=== PATIENT | male | born 1965 | race Caucasian/White ===

== ENCOUNTER → 2017-09-21 12:24 | Outpatient (CLI) | payer MEDICARE, MEDICAID | END | disposition home or self-care (01) | LOC: D.MRI 12:24 | DX: M25.561 Pain in right knee (principal) ==

== ENCOUNTER 2019-09-28 08:28 | Inpatient (IN) | payer MEDICARE, MEDICAID ==
[~2019-09-28] VITALS: Ht 180.3 cm; Wt 65.0 kg
--- NOTE | 2019-09-28 09:02 | NUR ---
TO CT VIA STRETCHER WITH COMPOSITION BOARD PRESS OPERATOR
[2019-09-28 09:30] LABS: BASOPHILS 0.2 % (0-2); EOSINOPHILS 6.5 % (0-7); HEMATOCRIT 39.9 % (42.0-54.0); HEMOGLOBIN 13.5 g/dL (13.5-17.5); IMMATURE GRANULOCYTES 0.3 % (0-5); LYMPHOCYTES 11.2 % (15-50); MCH 31.5 pg (26.0-34.0); MCHC 33.8 g/dL (31.0-37.0); MCV 93.2 fL (80.0-100.0); MEAN PLATELET VOLUME 9.3 fL (7.4-10.4); MONOCYTES 9.2 % (2-11); NEUTROPHILS 72.6 % (40-80); PLATELET COUNT 167 10x3/uL (130-400); RBC 4.28 10x6/uL (4.20-6.10); RDW 13.4 % (11.5-14.5); WBC 10.9 10x3/uL (4.8-10.8)
[2019-09-28 09:40] LABS: CALC OSMOLALITY 275 mosm/kg (275-300); CARBON DIOXIDE 29.1 mmol/L (21.0-32.0); CHLORIDE - SERUM 104 mmol/L (98-107); CREATININE - SERUM 0.7 mg/dL (0.6-1.3); GLUCOSE 106 mg/dL (74-106); POTASSIUM - SERUM 3.9 mmol/L (3.5-5.1); SODIUM 139 mmol/L (136-145); UREA NITROGEN 8 mg/dL (7-18); eGFR NON AFRICAN AMERICAN > 90 mL/min (90-120)
[2019-09-28 09:41] VITALS: BP 127/79
[2019-09-28 09:45] LABS: ALBUMIN 3.7 g/dL (3.4-5.0); ALKALINE PHOSPHATASE 52 U/L (46-116); ALT (SGPT) 51 U/L (10-68); BILIRUBIN - TOTAL 0.76 mg/dL (0.2-1.3); PROTEIN - SERUM 6.9 g/dL (6.4-8.2)
--- NOTE | 2019-09-28 09:48 | NUR ---
TO CT VIA STRETCHER WITH FOUNDRY PATTERNMAKER
[2019-09-28 10:07] LABS: CKMB 0.9 U/L (0.0-3.6); CREATINE KINASE 140 UL (21-232); TROPONIN-I < 0.017 ng/mL (0.000-0.060)
--- NOTE | 2019-09-28 10:12 | NUR ---
URINE SPEC OBTAIED,LABELED AT BS AND SENT TO LAB
[2019-09-28 10:29] LABS: APPEARANCE CLEAR (CLEAR); BILIRUBIN NEGATIVE (NEGATIVE); COLOR YELLOW (YELLOW); GLUCOSE NEGATIVE (NEGATIVE); KETONE NEGATIVE (NEGATIVE); NITRITE NEGATIVE (NEGATIVE); PROTEIN NEGATIVE (NEGATIVE); SPECIFIC GRAVITY 1.015 (1.005-1.020)
[2019-09-28 11:19] VITALS: BP 132/73
--- NOTE | 2019-09-28 11:56 | MORECARE ---
CASE MANAGEMENT DISCHARGE SUMMARY PATIENT: FERCHO PHAN UNIT: [id number] ADM DATE: 09/28/19 AGE: 54 : 67 SEX: M ROOM/BED: D.2231 AUTHOR: MITLON MONIQUE PHYSICIAN: REFERRING PHYSICIAN: KIRIT PLUMMER MD DATE OF SERVICE: 09/28/19 Discharge Plan Patient Name: FERCHO PHAN Facility: [facility]:[place] : 1965 Planned Disposition: Anticipated Discharge Date: Discharge Date: Expected LOS: Initial Reviewer: [id number] Initial Review Date: 09/28/2019 Generated: 09/28/19 12:56 pm DCP- Discharge Planning Updated by [id number]: Fabby Handy on 09/28/19 10:[address] CM met with patient to discuss initial discharge planning. Patient is in agreement to proceed with assessment. Patient is alert/oriented. Stairs/steps: None. Patient lives in an apartment with an elevator. PCP: Dr. Mirna Lynn APRN. Pharmacy: None. HHS: [place] [facility] in past, none current. DME: [facility]. Patient gives permission to speak with family members: Yes. Emergency contact: Trinh Marc (mother) [phone]. Independent w/ADL's: Yes. CM discussed the availability of HH, Rehab, DME services. Patient is in agreement to IN-patient REHAB if he qualifies. Patient denies being hospitalized within the past 30 days. 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 Transportation at time of discharge: Chrystal Marc (step-father) [phone]. CM will follow and assist with further DC planning PRN. Patient Name: FERCHO PHAN Page [phone] at 1156 All edits/amendments must be made on the electronic document DICTATION DATE: 09/28/19 1156 MARKETING BUDGET ANALYST: SHIRA 09/28/19 1156 RPT#: [id number] DC DATE: STATUS: ADM IN [facility] [address] [place] [address] END OF REPORT
--- NOTE | 2019-09-28 12:12 | NUR ---
REPORT CALLED TO WILMA FUENTES
[2019-09-28 12:35] VITALS: BP 130/76
--- NOTE | 2019-09-28 12:35 | NUR ---
TRANSPORTED TO ROOM #2231, CONDITION STABLE. NS INFUSING UPON TX
--- NOTE | 2019-09-28 12:50 | NUR ---
PT RECD TO RM 2231. PT IS AAO X 4. PT REPORTS THAT HE HAS HAD MULTIPLE FALLS RECENTLY AND ATTRITUBES FALLING TO DEFECT AND LEFT SIDED WEAKNESS A RESULT OF DEFECT. PT REPORTS THAT HE DOES DRINK ALCOHOL ON A REGULAR BASIS AND LAST INTAKE WAS (1) BEER ON 09/27/19. ALL FALL PRECAUTIONS ARE IN PLACE. PT REQUESTS TO STAY IN CURRENT HOSPITAL GOWN AT THIS TIME AND WILL CHANGE TO YELLOW GOWN AT HIS CONVENIENCE. PT WITH REDDENED AREA TO LEFT BUTTOCK WITH SORE. PT STATES THAT IT IS FROM "JUST BEING IN ONE SPOT FOR SO LONG". PT STATES THAT HE DOES LIVE ALONE BUT HIS MOTHER AND STEP FATHER WILL BE ASSISTING UPON DISCHARGE. PT WITH PERSONAL WALKER IN ROOM. BED IS IN THE LOWEST POSITION. CALL LIGHT AND BEDSIDE TABLE ARE WITHIN REACH. SIDE RAILS X 2. PT DENIES FURTHER NEEDS. WILL CONT TO MONITOR.
[2019-09-28 13:14] VITALS: BP 137/75
[2019-09-28 19:30] VITALS: BP 125/67
[2019-09-29 00:30] VITALS: BP 130/64
[2019-09-29 04:57] VITALS: BP 129/70
[2019-09-29 06:32] LABS: BASOPHILS 0.2 % (0-2); EOSINOPHILS 9.3 % (0-7); HEMATOCRIT 37.4 % (42.0-54.0); HEMOGLOBIN 12.1 g/dL (13.5-17.5); IMMATURE GRANULOCYTES 0.1 % (0-5); LYMPHOCYTES 17.5 % (15-50); MCH 31.2 pg (26.0-34.0); MCHC 32.4 g/dL (31.0-37.0); MEAN PLATELET VOLUME 9.4 fL (7.4-10.4); MONOCYTES 9.2 % (2-11); NEUTROPHILS 63.7 % (40-80); PLATELET COUNT 166 10x3/uL (130-400); RBC 3.88 10x6/uL (4.20-6.10); RDW 13.6 % (11.5-14.5); WBC 8.5 10x3/uL (4.8-10.8)
[2019-09-29 06:33] LABS: MCV 96.4 fL (80.0-100.0)
[2019-09-29 07:00] LABS: ALBUMIN 3.2 g/dL (3.4-5.0); ALKALINE PHOSPHATASE 49 U/L (46-116); BILIRUBIN - TOTAL 0.85 mg/dL (0.2-1.3); CALC OSMOLALITY 280 mosm/kg (275-300); CALCIUM 8.3 mg/dL (8.5-10.1); CARBON DIOXIDE 28.8 mmol/L (21.0-32.0); CHLORIDE - SERUM 108 mmol/L (98-107); CREATININE - SERUM 0.7 mg/dL (0.6-1.3); GLUCOSE 78 mg/dL (74-106); POTASSIUM - SERUM 4.1 mmol/L (3.5-5.1); PROTEIN - SERUM 5.9 g/dL (6.4-8.2); SODIUM 142 mmol/L (136-145); UREA NITROGEN 9 mg/dL (7-18); eGFR NON AFRICAN AMERICAN > 90 mL/min (90-120)
[2019-09-29 07:21] LABS: ALT (SGPT) 38 U/L (10-68)
[2019-09-29 09:05] VITALS: Ht 180.3 cm; Wt 65.0 kg
[2019-09-29 09:12] VITALS: BP 133/72
--- NOTE | 2019-09-29 09:21 | NUR ---
RESTING IN BED, REMAINS NPO, CONT TO MONITOR PAIN, IV INFUSING
[2019-09-29 13:04] VITALS: BP 132/83
[2019-09-29 16:36] VITALS: BP 128/68
--- NOTE | 2019-09-29 19:35 | NUR ---
REQEUSTED BEDPAN. PT HAD BM WITH URINE MIXED IN. ALERT AND ORIENTED X4. 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 MARI ALARM IN USE FOR PT SAFETY. REPORTS PAIN IN LT HIP RATING 1 BUT DENIES NEED FOR PAIN MED. RESP EVEN AND NONLABORED. NONPROD COUGH NOTED. BANANA BAG INFUSING @ 125ML/HR IN RT FOREARM WITHOUT DIFF. SR ELEVATED X2. CL IN REACH.
[2019-09-29 20:00] VITALS: BP 135/73
[2019-09-30] VITALS: BP 132/82
--- NOTE | 2019-09-30 00:41 | NUR ---
RESTING IN BED WITH EYES CLOSED. RESP EVEN AND NONLABORED. NO DISTRESS. MARI ALARM ON. CL IN REACH.
[2019-09-30 04:00] VITALS: BP 132/78
[2019-09-30 05:47] LABS: BASOPHILS 0.1 % (0-2); EOSINOPHILS 6.3 % (0-7); HEMATOCRIT 37.8 % (42.0-54.0); HEMOGLOBIN 12.2 g/dL (13.5-17.5); IMMATURE GRANULOCYTES 0.4 % (0-5); LYMPHOCYTES 18.3 % (15-50); MCH 30.8 pg (26.0-34.0); MCHC 32.3 g/dL (31.0-37.0); MCV 95.5 fL (80.0-100.0); MEAN PLATELET VOLUME 9.7 fL (7.4-10.4); MONOCYTES 12.3 % (2-11); NEUTROPHILS 62.6 % (40-80); PLATELET COUNT 158 10x3/uL (130-400); RBC 3.96 10x6/uL (4.20-6.10); RDW 13.2 % (11.5-14.5); WBC 8.5 10x3/uL (4.8-10.8)
[2019-09-30 05:59] LABS: ALBUMIN 2.9 g/dL (3.4-5.0); ALKALINE PHOSPHATASE 52 U/L (46-116); ALT (SGPT) 35 U/L (10-68); BILIRUBIN - TOTAL 0.37 mg/dL (0.2-1.3); CALC OSMOLALITY 279 mosm/kg (275-300); CALCIUM 8.1 mg/dL (8.5-10.1); CARBON DIOXIDE 27.6 mmol/L (21.0-32.0); CHLORIDE - SERUM 109 mmol/L (98-107); CREATININE - SERUM 0.6 mg/dL (0.6-1.3); GLUCOSE 99 mg/dL (74-106); POTASSIUM - SERUM 3.9 mmol/L (3.5-5.1); SODIUM 141 mmol/L (136-145); UREA NITROGEN 10 mg/dL (7-18); eGFR NON AFRICAN AMERICAN > 90 mL/min (90-120)
--- NOTE | 2019-09-30 06:50 | NUR ---
PT IN BED RESTING WITH EYES CLOSED. NO S/S OF ACUTE DISTRESS. NO C/O AT THIS TIME. MARI ALARM IN PLACE, FALL PRECAUTIONS FOLLOWED. PTS IV IN R FOREARM NS @ 125. IV SITE PATENT WITHOUT REDNESS OR SWELLING. PT HAS HIP FX, BUT HAS REFUSED SURGERY. CALL LIGHT IN PLACE WILL CONTINUE TO MONITOR
[2019-09-30 08:36] VITALS: BP 132/76
--- NOTE | 2019-09-30 10:20 | NUR ---
PT RESTING IN BED WITH EYES OPEN. ASKED PT ABOUT REFUSING HIS SURGERY, AND HE REPLIED "I DIDN'T KNOW THAT I WAS SUPPOSED TO HAVE SURGERY. THE DOCTOR SAID I DIDN'T NEED ONE." HE EXPRESSED THAT HE WOULD LIKE TO PURSUE SURGERY ON THE FX L HIP IF IT IS AN OPTION. NO S/S OF ACUTE DISTRESS. NO C/O AT THIS TIME. CALL LIGHT IN PLACE. WILL CONTINUE TO MONITOR.
[2019-09-30 11:58] VITALS: BP 131/73
--- NOTE | 2019-09-30 13:32 | NUR ---
PT DISCHARGE INSTRUCTIONS DONE AND PT SIGNED OFF. IV IN R FOREARM TAKEN OUT CATHETER TIP IN PLACE. IV IN L FOREARM TAKEN OUT AND CATHETER TIP IN PLACE. PT IS WAITING FOR HIS RIDE TO PICK HIM UP. CALL LIGHT IN PLACE WILL CONTINUE TO MONITOR.
[2019-09-30 15:30] VITALS: BP 137/73
--- NOTE | 2019-09-30 17:15 | MORECARE ---
CASE MANAGEMENT DISCHARGE SUMMARY PATIENT: FERCHO PHAN UNIT: [id number] ADM DATE: 09/28/19 AGE: 54 : 67 SEX: M ROOM/BED: D.2231 AUTHOR: MILTON MONIQUE PHYSICIAN: REFERRING PHYSICIAN: KIRIT PLUMMER MD DATE OF SERVICE: 09/30/19 Discharge Plan Patient Name: FRECHO PHAN Facility: [facility]:[place] : 1965 Planned Disposition: Anticipated Discharge Date: Discharge Date: Expected LOS: Initial Reviewer: [id number] Initial Review Date: 09/28/2019 Generated: 09/30/19 6:15 pm Comments DCP- Discharge Planning Updated by [id number]: Tania Barrera on 09/30/19 4:[address] Patient Name: FERCHO PHAN Admission Status: ER Accout number: [id number] Admission Date: 09-28-2019 : 1965 Admission Diagnosis: Attending: KIRIT GARCIA Current LOS: 2 Anticipated DC Date: Planned Disposition: Primary Insurance: [employer] MANAGED MEDICAID Discharge Planning Comments: I SPOKE WITH PATIENT ABOUT EQIPMENT, STATES HE NEEDS A WHEEL CHAIR. DIANE SIGNED FOR [facility]. 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 I CONTACTED AND FAXED DOCUMENTS TO [facility]. Discharge Coordinator: Tania Barrera DCP- Discharge Planning Updated by [email or web address]: Fabby Handy on 09/28/19 10:[address] CM met with patient to discuss initial discharge planning. Patient is in agreement to proceed with assessment. Patient is alert/oriented. Stairs/steps: None. Patient lives in an apartment with an elevator. PCP: Dr. Mirna Lynn APRN. Pharmacy: None. HHS: [place] [facility] in past, none current. DME: [facility]. Patient gives permission to speak with family members: Yes. Emergency contact: Trinh Marc (mother) [phone]. Independent w/ADL's: Yes. CM discussed the availability of HH, Rehab, DME services. Patient is in agreement to IN-patient REHAB if he qualifies. Patient denies being hospitalized within the past 30 days. 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 Transportation at time of discharge: Chrystal Marc (step-father) [phone]. CM will follow and assist with further DC planning PRN. Coverage Notice Reviewer: [id number] Helena Barrera Notice Issued Date-Time: 09/30/2019 17:05 Notice Type: Patient Choice Letter Notice Delivered To: Patient Relationship to Patient: Manager Proposal Name: Delivery Method: HAND - Hand Delivered Bere Days: Prior Verbal Notification: Recipient Understood Notice: Yes Recipient Signature: Yes Med Rec Note Co-signed by Attending: Coverage Notice Comment: DIANE DEL TORO Last DP export: 09/28/19 10:56 Patient Name: FERCHO PHAN Page 07221 at 1711 All edits/amendments must be made on the electronic document DICTATION DATE: 09/30/191714 SYSTEMS SECURITY CONSULTANT: SHIRA 09/30/191714 RPT#: [id number] DC DATE: STATUS: ADM IN [facility] [address] [place] [address] END OF REPORT
--- NOTE | 2019-09-30 17:23 | MORECARE ---
CASE MANAGEMENT DISCHARGE SUMMARY PATIENT: FERCHO PHAN UNIT: [id number] ADM DATE: 09/28/19 AGE: 54 : 67 SEX: M ROOM/BED: D.2231 AUTHOR: MILTON MONIQUE PHYSICIAN: REFERRING PHYSICIAN: KIRIT PLUMMER MD DATE OF SERVICE: 09/30/19 Discharge Plan Patient Name: FERCHO PHAN Facility: [facility]:[place] : 1965 Planned Disposition: Anticipated Discharge Date: Discharge Date: Expected LOS: Initial Reviewer: [id number] Initial Review Date: 09/28/2019 Generated: 09/30/19 6:22 pm Comments DCP- Discharge Planning Updated by [id number]: Tania Barrera on 09/30/19 4:[address] Patient Name: FERCHO PHAN Admission Status: ER Accout number: [id number] Admission Date: 09-28-2019 : 1965 Admission Diagnosis: Attending: KIRIT GARCIA Current LOS: 2 Anticipated DC Date: Planned Disposition: Primary Insurance: [employer] MANAGED MEDICAID Discharge Planning Comments: I SPOKE WITH PATIENT ABOUT EQIPMENT, STATES HE NEEDS A WHEEL CHAIR. DIANE SIGNED FOR [facility]. 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 I CONTACTED AND FAXED DOCUMENTS TO [facility]. President Financial Institution: Tania Barrera DCP- Discharge Planning Updated by [email or web address]: Fabby Handy on 09/28/19 10:[address] CM met with patient to discuss initial discharge planning. Patient is in agreement to proceed with assessment. Patient is alert/oriented. Stairs/steps: None. Patient lives in an apartment with an elevator. PCP: Dr. Mirna Lynn APRN. Pharmacy: None. HHS: [place] [facility] in past, none current. DME: [facility]. Patient gives permission to speak with family members: Yes. Emergency contact: Trinh Marc (mother) [phone]. Independent w/ADL's: Yes. CM discussed the availability of HH, Rehab, DME services. Patient is in agreement to IN-patient REHAB if he qualifies. Patient denies being hospitalized within the past 30 days. 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 Transportation at time of discharge: Chrystal Marc (step-father) [phone]. CM will follow and assist with further DC planning PRN. External Providers External Provider: Tami Next Contact Date: Service Request Date: Service Type: Resolution: Reviewer: Comments: Coverage Notice Reviewer: [id number] Helena Barrera Notice Issued Date-Time: 09/30/2019 17:05 Notice Type: Patient Choice Letter Notice Delivered To: Patient Relationship to Patient: Keyboard Action Assembler Name: Delivery Method: HAND - Hand Delivered Bere Days: Prior Verbal Notification: Recipient Understood Notice: Yes Recipient Signature: Yes Med Rec Note Co-signed by Attending: Coverage Notice Comment: DIANE DEL TORO Last DP export: 09/30/19 4:15 Patient Name: FERCHO PHAN Page [id number] at 1723 All edits/amendments must be made on the electronic document DICTATION DATE: 09/30/191721 NEEDLE GRADER: SHIRA 09/30/191721 RPT#: [id number] DC DATE: STATUS: ADM IN [facility] [address] [place] [address] END OF REPORT
--- NOTE | 2019-09-30 17:31 | MORECARE ---
CASE MANAGEMENT DISCHARGE SUMMARY PATIENT: FERCHO PHAN UNIT: [id number] ADM DATE: 09/28/19 AGE: 54 : 67 SEX: M ROOM/BED: D.2231 AUTHOR: MILTON MONIQUE PHYSICIAN: REFERRING PHYSICIAN: KIRIT PLUMMER MD DATE OF SERVICE: 09/30/19 Discharge Plan Patient Name: FERCHO PHAN Facility: [facility]:[place] : 1965 Planned Disposition: Anticipated Discharge Date: Discharge Date: Expected LOS: Initial Reviewer: [id number] Initial Review Date: 09/28/2019 Generated: 09/30/19 6:31 pm Comments DCP- Discharge Planning Updated by [email or web address]: Tania Barrera on 09/30/19 4:[address] Patient Name: FERCHO PHAN Admission Status: ER Accout number: [id number] Admission Date: 09-28-2019 : 1965 Admission Diagnosis: Attending: KIRIT GARCIA Current LOS: 2 Anticipated DC Date: Planned Disposition: Primary Insurance: [employer] MANAGED MEDICAID Discharge Planning Comments: I SPOKE WITH PATIENT ABOUT EQIPMENT, STATES HE NEEDS A WHEEL CHAIR. DIANE SIGNED FOR [facility]. 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 I CONTACTED AND FAXED DOCUMENTS TO [facility]. Projector Booth Operator: Tania Barrera Appended by Tania Barrera on 09/30/2019 17:24 CELL TESTER: HE ALSO STATES THAT HE DID NOT ELECT NOT TO HAVE SURGERY. STATES HE WOULD LIKE TO HAVE THE SURGERY AND INSTRUCTED THE DOCTOR. CM TO FOLLOW AND ASSIST. DCP- Discharge Planning Updated by [id number]: Fabby Handy on 09/28/19 10:[address] CM met with patient to discuss initial discharge planning. Patient is in agreement to proceed with assessment. Patient is alert/oriented. Stairs/steps: None. Patient lives in an apartment with an elevator. PCP: Dr. Mirna Lynn APRN. Pharmacy: None. HHS: [place] [facility] in past, none current. DME: [facility]. Patient gives permission to speak with family members: Yes. Emergency contact: Trinh Marc (mother) [phone]. Independent w/ADL's: Yes. CM discussed the availability of HH, Rehab, DME services. Patient is in agreement to IN-patient REHAB if he qualifies. Patient denies being hospitalized within the past 30 days. Denies use of community resources BLIND CLEANER. Transportation at time of discharge: Chrystal Marc (step-father) [phone]. CM will follow and assist with further DC planning PRN. Coverage Notice Reviewer: [id number] Helena Barrera Notice Issued Date-Time: 09/30/2019 17:05 Notice Type: Patient Choice Letter Notice Delivered To: Patient Relationship to Patient: Vending Machine Servicer Name: Delivery Method: HAND - Hand Delivered Bere Days: Prior Verbal Notification: Recipient Understood Notice: Yes Recipient Signature: Yes Med Rec Note Co-signed by Attending: Coverage Notice Comment: DIANE Solano DP export: 09/30/19 4:23 Patient Name: FERCHO PHAN Page [phone] at 1731 All edits/amendments must be made on the electronic document DICTATION DATE: 09/30/191730 CORRECTIONAL SECURITY OFFICER: SHIRA 09/30/191730 RPT#: [id number] DC DATE: STATUS: ADM IN [facility] [address] [place] [address] END OF REPORT
--- NOTE | 2019-09-30 18:54 | NUR ---
I have reviewed this patient and I concur with the Shift Assessment completed by the Licensed Practical Nurse today this shift.
--- NOTE | 2019-09-30 19:35 | NUR ---
LYING IN BED WATCHING TV. ALERT AND ORIENTED X4. LT SIDED WEAKNESS NOTED WITH LT HAND CONTRACTURED. HAS CEREBRAL PALSY. MARI ALARM ON FOR PT SAFETY. DENIES PAIN. RESP NONLABORED. NONPROD COUGH NOTED. BANANA BAG INFUSING @ 125 MLHR WITHOUT DIFF. DENIES NEEDS. SR ELEVATED X2. CL IN REACH.
[2019-09-30 20:54] VITALS: BP 141/73
--- NOTE | 2019-09-30 23:30 | NUR ---
IV ALARMING AIR IN LINE. PT STATES HE WISHES THEY WOULD D/C HIS IV FLUIDS AND HE WANTS TO GO HOME. NO DISTRESS. COOPERATIVE WITH STAFF. CL IN REACH. MARI ALARM ON FOR PT SAFETY.
[2019-10-01 00:27] VITALS: BP 150/96
--- NOTE | 2019-10-01 02:44 | NUR ---
LYING IN BED WITH EYES CLOSED. RESP EVEN AND NONLABORED. NO DISTRESS. CL IN REACH.
[2019-10-01 04:27] VITALS: BP 148/72
[2019-10-01 05:08] LABS: BASOPHILS 0.2 % (0-2); EOSINOPHILS 6.9 % (0-7); HEMATOCRIT 36.8 % (42.0-54.0); HEMOGLOBIN 12.1 g/dL (13.5-17.5); IMMATURE GRANULOCYTES 0.4 % (0-5); LYMPHOCYTES 16.9 % (15-50); MCH 31.3 pg (26.0-34.0); MCHC 32.9 g/dL (31.0-37.0); MCV 95.1 fL (80.0-100.0); MEAN PLATELET VOLUME 9.8 fL (7.4-10.4); MONOCYTES 12.1 % (2-11); NEUTROPHILS 63.5 % (40-80); PLATELET COUNT 159 10x3/uL (130-400); RBC 3.87 10x6/uL (4.20-6.10); RDW 13.3 % (11.5-14.5); WBC 8.3 10x3/uL (4.8-10.8)
[2019-10-01 05:33] LABS: ALKALINE PHOSPHATASE 60 U/L (46-116); ALT (SGPT) 33 U/L (10-68); BILIRUBIN - TOTAL 0.35 mg/dL (0.2-1.3); CALC OSMOLALITY 285 mosm/kg (275-300); CALCIUM 8.3 mg/dL (8.5-10.1); CARBON DIOXIDE 29.7 mmol/L (21.0-32.0); CHLORIDE - SERUM 108 mmol/L (98-107); CREATININE - SERUM 0.6 mg/dL (0.6-1.3); GLUCOSE 92 mg/dL (74-106); POTASSIUM - SERUM 3.5 mmol/L (3.5-5.1); PROTEIN - SERUM 5.8 g/dL (6.4-8.2); SODIUM 144 mmol/L (136-145); UREA NITROGEN 10 mg/dL (7-18); eGFR NON AFRICAN AMERICAN > 90 mL/min (90-120)
[2019-10-01 08:36] VITALS: BP 153/92
[2019-10-01 13:24] VITALS: BP 163/73
--- NOTE | 2019-10-01 14:04 | NUR ---
NUTRITION F/U PT TOLERATING REG DIET WITH 75% INTAKE BREAKFAST THIS AM. NO COMPLAINTS. WILL CONTINUE TO PROVIDE REG DIET, HONOR FOOD PREFERENCES, MONITOR PO INTAKE. RD FOLLOWING
--- NOTE | 2019-10-01 15:56 | NUR ---
OT NOTE: PT COMPLETED BED MOB WITH MIN A. PT COMPLETED UB DRESSING TASKS WITH CGA-MIN A. PT COMPLETED BUE AROM AXS. THANK YOU, NISHA TIMMONS
[2019-10-01 16:56] VITALS: BP 118/73
--- NOTE | 2019-10-01 18:50 | NUR ---
PATIENT IN BED WITH IV INTACT. NO COMPLAINTS. CALL LIGHT WITHIN REACH.
--- NOTE | 2019-10-01 20:00 | NUR ---
ASSESSMENT PER FLOWSHEET. LEFT SIDE MODERTE WEAKNESS. LEFT LEG FX UNABLE TO MOVE. MARI MAT TO BED. IV PATENT RT FOREARM OF MVI AT 125CC'S/HR SITE CLEAR. SR UP X2 CALL LIGHT WITHIN REACH.
[2019-10-01 20:50] VITALS: BP 126/80
--- NOTE | 2019-10-01 23:11 | NUR ---
RESING QUIETLY DENIES NEEDS.
[2019-10-02 00:59] VITALS: BP 130/70
[2019-10-02 04:06] VITALS: BP 120/79
[2019-10-02 06:52] LABS: BASOPHILS 0.1 % (0-2); EOSINOPHILS 4.5 % (0-7); HEMATOCRIT 35.7 % (42.0-54.0); HEMOGLOBIN 11.5 g/dL (13.5-17.5); IMMATURE GRANULOCYTES 0.3 % (0-5); LYMPHOCYTES 16.5 % (15-50); MCH 30.6 pg (26.0-34.0); MCHC 32.2 g/dL (31.0-37.0); MCV 94.9 fL (80.0-100.0); MEAN PLATELET VOLUME 9.8 fL (7.4-10.4); MONOCYTES 11.5 % (2-11); NEUTROPHILS 67.1 % (40-80); PLATELET COUNT 175 10x3/uL (130-400); RBC 3.76 10x6/uL (4.20-6.10); RDW 13.3 % (11.5-14.5)
[2019-10-02 06:53] LABS: WBC 10.7 10x3/uL (4.8-10.8)
[2019-10-02 07:05] LABS: ALBUMIN 2.9 g/dL (3.4-5.0); ALKALINE PHOSPHATASE 53 U/L (46-116); ALT (SGPT) 29 U/L (10-68); BILIRUBIN - TOTAL 0.41 mg/dL (0.2-1.3); CALC OSMOLALITY 280 mosm/kg (275-300); CALCIUM 8.2 mg/dL (8.5-10.1); CARBON DIOXIDE 26.8 mmol/L (21.0-32.0); CHLORIDE - SERUM 108 mmol/L (98-107); CREATININE - SERUM 0.6 mg/dL (0.6-1.3); GLUCOSE 92 mg/dL (74-106); POTASSIUM - SERUM 3.4 mmol/L (3.5-5.1); PROTEIN - SERUM 5.7 g/dL (6.4-8.2); SODIUM 142 mmol/L (136-145); UREA NITROGEN 8 mg/dL (7-18); eGFR NON AFRICAN AMERICAN > 90 mL/min (90-120)
--- NOTE | 2019-10-02 07:20 | NUR ---
PATIENT IN BED WITH IV INTACT. SITTING UP WITH NO COMPLAINTS. STATES HE WANT TO SEE THE ORTHO DOCTOR BC HE WANTS TO HAVE SURGERY ON HIS HIP. STATED HE TOLD THE DOCTOR YESTERDAY. SPOKE WITH BITA.
[2019-10-02 09:24] VITALS: BP 142/76
--- NOTE | 2019-10-02 12:51 | MORECARE ---
CASE MANAGEMENT DISCHARGE SUMMARY PATIENT: FERCHO PHAN UNIT: [id number] ADM DATE: 09/28/19 AGE: 54 : 67 SEX: M ROOM/BED: D.2231 AUTHOR: MILTON MONIQUE PHYSICIAN: REFERRING PHYSICIAN: KIRIT PLUMMER MD DATE OF SERVICE: 10/02/19 Discharge Plan Patient Name: FERCHO PHAN Facility: [facility]:[place] : 1965 Planned Disposition: Anticipated Discharge Date: Discharge Date: Expected LOS: Initial Reviewer: [id number] Initial Review Date: 09/28/2019 Generated: 10/02/19 1:50 pm DCP- Discharge Planning Updated by [id number]: Tania Barrera on 09/30/19 4:[address] Patient Name: FERCHO PHAN Admission Status: ER Accout number: [id number] Admission Date: 09-28-2019 : 1965 Admission Diagnosis: Attending: KIRIT GARCIA Current LOS: 2 Anticipated DC Date: Planned Disposition: Primary Insurance: [employer] MANAGED MEDICAID Discharge Planning Comments: I SPOKE WITH PATIENT ABOUT EQIPMENT, STATES HE NEEDS A WHEEL CHAIR. DIANE SIGNED FOR [facility]. 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 I CONTACTED AND FAXED DOCUMENTS TO [facility]. Certified Coding Specialist: Tania Barrera Appended by Tania Barrera on 09/30/2019 17:24 SURFACE HYDROLOGIST: HE ALSO STATES THAT HE DID NOT ELECT NOT TO HAVE SURGERY. STATES HE WOULD LIKE TO HAVE THE SURGERY AND INSTRUCTED THE DOCTOR. CM TO FOLLOW AND ASSIST. DCP- Discharge Planning Updated by [id number]: Fabby Handy on 09/28/19 10:[address] CM met with patient to discuss initial discharge planning. Patient is in agreement to proceed with assessment. Patient is alert/oriented. Stairs/steps: None. Patient lives in an apartment with an elevator. PCP: Dr. Mirna Lynn APRN. Pharmacy: None. HHS: [place] [facility] in past, none current. DME: [facility]. Patient gives permission to speak with family members: Yes. Emergency contact: Trinh Marc (mother) [phone]. Independent w/ADL's: Yes. CM discussed the availability of HH, Rehab, DME services. Patient is in agreement to IN-patient REHAB if he qualifies. Patient denies being hospitalized within the past 30 days. 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 Transportation at time of discharge: Chrystal Marc (step-father) [phone]. CM will follow and assist with further DC planning PRN. External Providers External Provider: Tami Next Contact Date: Service Request Date: Service Type: Resolution: Reviewer: Comments: Coverage Notice Reviewer: [id number] Helena Barrera Notice Issued Date-Time: 09/30/2019 17:05 Notice Type: Patient Choice Letter Notice Delivered To: Patient Relationship to Patient: Activity Therapy Specialist Name: Delivery Method: HAND - Hand Delivered Bere Days: Prior Verbal Notification: Recipient Understood Notice: Yes Recipient Signature: Yes Med Rec Note Co-signed by Attending: Coverage Notice Comment: DIANE DEL TORO Last DP export: 09/30/19 4:31 Patient Name: FERCHO PHAN Page 69022 at 1251 All edits/amendments must be made on the electronic document DICTATION DATE: 10/02/19 1250 LIABILITY CLAIMS ADJUSTER: SHIRA 10/02/19 1250 RPT#: [id number] DC DATE: STATUS: ADM IN [facility] [address] [place] [address] END OF REPORT
--- NOTE | 2019-10-02 13:06 | MORECARE ---
CASE MANAGEMENT DISCHARGE SUMMARY PATIENT: FERCHO PHAN UNIT: [id number] ADM DATE: 09/28/19 AGE: 54 : 67 SEX: M ROOM/BED: D.2231 AUTHOR: MILTON MONIQUE PHYSICIAN: REFERRING PHYSICIAN: KIRIT PLUMMER MD DATE OF SERVICE: 10/02/19 Discharge Plan Patient Name: FERCHO PHAN Facility: [facility]:[place] : 1965 Planned Disposition: Anticipated Discharge Date: Discharge Date: Expected LOS: Initial Reviewer: [id number] Initial Review Date: 09/28/2019 Generated: 10/02/19 2:05 pm Comments DCP- Discharge Planning Updated by [email or web address]: Kristie Galaviz on 10/02/19 12:[address] Patient would like to go to inpatient rehab if his insurance will authorize this. He states he will just need to be discharged by the [facility] to pay his rent. He states that he will need an electric wheelchair when discharged from inpatient rehab. He is unable to use a manual wheelchair because of disability with his hand. CM will continue to follow and assist with discharge planning/needs. DCP- Discharge Planning Updated by [email or web address]: Tania Barrera on 09/30/19 4:[address] Patient Name: FERCHO PHAN Admission Status: ER Accout number: [id number] Admission Date: 09-28-2019 : 1965 Admission Diagnosis: Attending: KIRIT GARCIA Current LOS: 2 Anticipated DC Date: Planned Disposition: Primary Insurance: [employer] MANAGED MEDICAID Discharge Planning Comments: I SPOKE WITH PATIENT ABOUT EQIPMENT, STATES HE NEEDS A WHEEL CHAIR. DIANE SIGNED FOR [facility]. 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 I CONTACTED AND FAXED DOCUMENTS TO [facility]. Hazardous Material Technician: Tania Barrera Appended by Tania Barrera on 09/30/2019 17:24 DIETITIAN HELPER: HE ALSO STATES THAT HE DID NOT ELECT NOT TO HAVE SURGERY. STATES HE WOULD LIKE TO HAVE THE SURGERY AND INSTRUCTED THE DOCTOR. CM TO FOLLOW AND ASSIST. DCP- Discharge Planning Updated by [email or web address]: Fabby Handy on 09/28/19 10:[address] CM met with patient to discuss initial discharge planning. Patient is in agreement to proceed with assessment. Patient is alert/oriented. Stairs/steps: None. Patient lives in an apartment with an elevator. PCP: Dr. Mirna Lynn APRN. Pharmacy: None. HHS: [place] [facility] in past, none current. DME: [facility]. Patient gives permission to speak with family members: Yes. Emergency contact: Trinh Marc (mother) [phone]. Independent w/ADL's: Yes. CM discussed the availability of HH, Rehab, DME services. Patient is in agreement to IN-patient REHAB if he qualifies. Patient denies being hospitalized within the past 30 days. 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 Transportation at time of discharge: Chrystal Marc (step-father) [phone]. CM will follow and assist with further DC planning PRN. Coverage Notice Reviewer: [id number] Helena Barrera Notice Issued Date-Time: 09/30/2019 17:05 Notice Type: Patient Choice Letter Notice Delivered To: Patient Relationship to Patient: Transcribing Operators Supervisor Name: Delivery Method: HAND - Hand Delivered Bere Days: Prior Verbal Notification: Recipient Understood Notice: Yes Recipient Signature: Yes Med Rec Note Co-signed by Attending: Coverage Notice Comment: DIANE Solano DP export: 10/02/19 11:51 Patient Name: FERCHO PHAN Page 84238 at 1306 All edits/amendments must be made on the electronic document DICTATION DATE: 10/02/19 1305 DRAINLAYER: SHIRA 10/02/19 1305 RPT#: [id number] DC DATE: STATUS: ADM IN [facility] [address] [place] [address] END OF REPORT
--- NOTE | 2019-10-02 13:12 | MORECARE ---
CASE MANAGEMENT DISCHARGE SUMMARY PATIENT: FERCHO PHAN UNIT: [id number] ADM DATE: 09/28/19 AGE: 54 : 67 SEX: M ROOM/BED: D.2231 AUTHOR: MILTON MONIQUE PHYSICIAN: REFERRING PHYSICIAN: KIRIT PLUMMER MD DATE OF SERVICE: 10/02/19 Discharge Plan Patient Name: FERCHO PHAN Facility: [facility]:[place] : 1965 Planned Disposition: Anticipated Discharge Date: Discharge Date: Expected LOS: Initial Reviewer: [id number] Initial Review Date: 09/28/2019 Generated: 10/02/19 2:12 pm Comments DCP- Discharge Planning Updated by [id number]: Kristie Galaviz on 10/02/19 12:[address] Patient would like to go to inpatient rehab if his insurance will authorize this. He states he will just need to be discharged by the [facility] to pay his rent. He states that he will need an electric wheelchair when discharged from inpatient rehab. He is unable to use a manual wheelchair because of disability with his hand. Order and clinical faxed to [facility] [place] for electric wheelchair. CM will continue to follow and assist with discharge planning/needs. DCP- Discharge Planning Updated by [id number]: Tania Barrera on 09/30/19 4:[address] Patient Name: FERCHO PHAN Admission Status: ER Accout number: [id number] Admission Date: 09-28-2019 : 1965 Admission Diagnosis: Attending: KIRIT GARCIA Current LOS: 2 Anticipated DC Date: Planned Disposition: Primary Insurance: NOVASYS MANAGED MEDICAID Discharge Planning Comments: I SPOKE WITH PATIENT ABOUT EQIPMENT, STATES HE NEEDS A WHEEL CHAIR. DIANE SIGNED FOR [facility]. 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 I CONTACTED AND FAXED DOCUMENTS TO [facility]. Operational Risk Consultant: Tania Barrera Appended by Tania Barrera on 09/30/2019 17:24 MINE ENGINEERING SUPERINTENDENT: HE ALSO STATES THAT HE DID NOT ELECT NOT TO HAVE SURGERY. STATES HE WOULD LIKE TO HAVE THE SURGERY AND INSTRUCTED THE DOCTOR. CM TO FOLLOW AND ASSIST. DCP- Discharge Planning Updated by [id number]: Fabby Handy on 09/28/19 10:[address] CM met with patient to discuss initial discharge planning. Patient is in agreement to proceed with assessment. Patient is alert/oriented. Stairs/steps: None. Patient lives in an apartment with an elevator. PCP: Dr. Mirna Lynn APRN. Pharmacy: None. HHS: [facility] in past, none current. DME: [facility]. Patient gives permission to speak with family members: Yes. Emergency contact: Trinh Marc (mother) [phone]. Independent w/ADL's: Yes. CM discussed the availability of HH, Rehab, DME services. Patient is in agreement to IN-patient REHAB if he qualifies. Patient denies being hospitalized within the past 30 days. 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 Transportation at time of discharge: Chrystal Marc (step-father) [phone]. CM will follow and assist with further DC planning PRN. Coverage Notice Reviewer: [id number] Helena Barrera Notice Issued Date-Time: 09/30/2019 17:05 Notice Type: Patient Choice Letter Notice Delivered To: Patient Relationship to Patient: Human Resources Operations Manager Name: Delivery Method: HAND - Hand Delivered Bere Days: Prior Verbal Notification: Recipient Understood Notice: Yes Recipient Signature: Yes Med Rec Note Co-signed by Attending: Coverage Notice Comment: DIANE Solano DP export: 10/02/19 12:06 Patient Name: FERCHO PHAN Page [phone] at 1312 All edits/amendments must be made on the electronic document DICTATION DATE: 10/02/19 1312 HAND HARDENER: SHIRA 10/02/19 1312 RPT#: [id number] DC DATE: STATUS: ADM IN [facility] [address] [place] [address] END OF REPORT
[2019-10-02 13:14] VITALS: BP 169/87
--- NOTE | 2019-10-02 14:10 | NUR ---
OT NOTE: PT CONT WITH REPORTS OF PAIN WITH ALL LE MOVEMENT. BED MOB WITH MIN ASSIST; SITTING BALANCE ON EOB IS GOOD; REMAINS UNABLE TO TRANSFER DUE TO PAIN DURING STANDING. PT WITH CONTINUED DIFFICULTY WITH TTWB ON L SIDE. REQUIRES EXT ASSIST WITH LE DRESSING AND SET UP WITH UE DRESSING. ABLE TO USE URINAL WITHOUT ASSIST BUT REUQIRES EXT ASSIST WITH REMAINDER OF TOILETING. RECOMMEND IP REHAB TO ALLOW PT TO RETURN TO INDEP LIVING FROM WC LEVEL AND TO BE INDEP WITH FUNCTIONAL TRANSFERS. DINESH ABDI, OTR/L
--- NOTE | 2019-10-02 15:32 | NUR ---
Rehab Note- Acute Inpatient Rehab prescreen order received. The patient has [facility] insurance and will require a PreAuth prior to an acute inpatient rehab stay. Have initiated a PreAuth, Ref#[id number]. Will continue to await for determination. Will follow at this time. Thank you for this referral! Maria Stanford RN Clinical Liaison, [facility] Rehab
[2019-10-02 16:27] VITALS: BP 134/79
--- NOTE | 2019-10-02 18:19 | NUR ---
OT NOTE: PT COMPLETED BED MOB TASKS WITH MIN A. PT C/O PAIN. NURSING AWARE. PT REQUIRED MOD/MAX A FOR HYGIENE TASKS. THANK YOU,NISHA TIMMONS
--- NOTE | 2019-10-02 19:14 | NUR ---
PATIENT IN BED WITH IV INTACT. NO COMPLAINTS OR SIGNS OF DISTRESS. BANANA BAG STARTED. BSCDS OFF AT THIS TIME. CALL LIGHT WITHIN REACH.
--- NOTE | 2019-10-02 20:00 | NUR ---
ASSESSMENT PER FLOWSHEET. IV PATENT RT FOREARM OF MVI AT 125CC'S/HR. LEFT ARM/LEG WEAK. MARI MAT IN USE. SR UP X2 CALL LIGHT WITHIN REACH. SCD'S ON.
[2019-10-02 20:40] VITALS: BP 110/65
--- NOTE | 2019-10-03 | NUR ---
VOIDS IN URINAL.
[2019-10-03 01:00] VITALS: BP 130/78
--- NOTE | 2019-10-03 03:01 | NUR ---
EYES LOSED RESPIRATIONS WITH EASE AND UNLABORED.
[2019-10-03 04:47] VITALS: BP 130/75
[2019-10-03 06:38] LABS: BASOPHILS 0.3 % (0-2); EOSINOPHILS 5.1 % (0-7); HEMATOCRIT 36.9 % (42.0-54.0); HEMOGLOBIN 12.1 g/dL (13.5-17.5); IMMATURE GRANULOCYTES 0.2 % (0-5); LYMPHOCYTES 17.3 % (15-50); MCH 31.2 pg (26.0-34.0); MCHC 32.8 g/dL (31.0-37.0); MCV 95.1 fL (80.0-100.0); MEAN PLATELET VOLUME 9.9 fL (7.4-10.4); MONOCYTES 12.6 % (2-11); NEUTROPHILS 64.5 % (40-80); PLATELET COUNT 190 10x3/uL (130-400); RBC 3.88 10x6/uL (4.20-6.10); RDW 13.2 % (11.5-14.5); WBC 9.3 10x3/uL (4.8-10.8)
[2019-10-03 06:51] LABS: ALBUMIN 2.9 g/dL (3.4-5.0); ALKALINE PHOSPHATASE 53 U/L (46-116); ALT (SGPT) 30 U/L (10-68); BILIRUBIN - TOTAL 0.42 mg/dL (0.2-1.3); CALC OSMOLALITY 279 mosm/kg (275-300); CALCIUM 8.1 mg/dL (8.5-10.1); CARBON DIOXIDE 28.1 mmol/L (21.0-32.0); CHLORIDE - SERUM 107 mmol/L (98-107); CREATININE - SERUM 0.6 mg/dL (0.6-1.3); GLUCOSE 91 mg/dL (74-106); POTASSIUM - SERUM 3.7 mmol/L (3.5-5.1); PROTEIN - SERUM 6.2 g/dL (6.4-8.2); SODIUM 141 mmol/L (136-145); UREA NITROGEN 10 mg/dL (7-18); eGFR NON AFRICAN AMERICAN > 90 mL/min (90-120)
--- NOTE | 2019-10-03 07:52 | NUR ---
ALERT AND ORIENTED. LUNGS CLEAR BILATEARLLY. HEART SOUNDS S1 AND S2 HEARD IN ALL MOYER. BOWEL SOUNDS ACTIVE X 4. SKIN INTACT WITHOUT REDNESS. IV TO RFA PATENT WITHOUT REDNESS. DENIES NEEDS. BED LOW. FALL PRECAUTIONS IN PLACE. CALL BANERJEE AND PERSONAL ITEMS IN REACH. WILL CONTINUE TO MONITOR.
[2019-10-03 09:02] VITALS: BP 143/81
--- NOTE | 2019-10-03 12:20 | NUR ---
OT NOTE: ABLE TO RANJEET PANTS WITH MIN ASSIST WHILE IN BED; BED MOB TO INCLUDE SUPINE TO SIT WITH SBA/MIN ASSIST; MOD ASSIST WITH TRANSFER FROM BED TO CHAIR WITH USE OF WALKER; EDUCATION ON SAFETY AWARENESS; PLACED ALARM PAD IN CHAIR DINESH ABDI OTR/L
[2019-10-03 12:55] VITALS: BP 133/75
--- NOTE | 2019-10-03 14:40 | NUR ---
ASSISTED OFF BEDPAN. LARGE BM NOTED.
--- NOTE | 2019-10-03 14:44 | NUR ---
RESTING IN BED. DENIES NEEDS. WILL CONTINUE TO MONITOR.
[2019-10-03 16:38] VITALS: BP 129/72
--- NOTE | 2019-10-03 20:00 | NUR ---
ASSESSMENT PER FLOWSHEET. SR UP X2 CALL LIGHT WITHIN REACH. IV PATENT RT FOREARM OF MVI AT 1256CC'S/HR. USES URINAL TO VOID.
[2019-10-03 20:35] VITALS: BP 125/56
--- NOTE | 2019-10-03 22:00 | NUR ---
AWAKE WATCHING TV DENIES NEEDS.
--- NOTE | 2019-10-04 | NUR ---
AWAKE WATCHING TV. DENIES NEEDS.
[2019-10-04 01:26] VITALS: BP 145/80
--- NOTE | 2019-10-04 01:45 | NUR ---
MVI COMPLETED. NS HUNG AT 125CC'S/HR. MARI MAT IN PLACE. WITH ALARMS SET.
--- NOTE | 2019-10-04 01:47 | NUR ---
NO CHANGES IN ASSESSMENT.
[2019-10-04 05:20] VITALS: BP 138/78
--- NOTE | 2019-10-04 07:56 | NUR ---
AWAKE AND ALERT. ORIENTED X3. NO C/O AT THIS TIME. LUNGS ARE CLEAR BILATERALLY, NO COUGH NOTED. SKIN IS INTACT WITHOUT REDNESS. IV TO LEFT FOREARM IS PATENT WITHOUT REDNESS AT INSERTION SITE. DENIES NEEDS.
--- NOTE | 2019-10-04 10:00 | NUR ---
ATE MOST OF BREAKFAST. DENIES NEEDS. REFUSED OFFER OF PAIN MEDS.
--- NOTE | 2019-10-04 10:52 | NUR ---
REHAB PRESCREENING Authorization for Acute Inpatient Rehab received from [facility]. Auth #[id number] will be approved for admission within the next 72 hours. Clinical updates to be faxed to Elva at [phone] within 7 days of admission. Elva's contact number is [phone]. Screen will be started and this patient may come to rehab if he is agreeable and his physicians feel he is appropriate for discharge. Thank you for this referral! Amy Collado, PEOPLE MANAGER Rehab PD
[2019-10-04 10:53] VITALS: BP 164/93
--- NOTE | 2019-10-04 11:34 | MORECARE ---
CASE MANAGEMENT DISCHARGE SUMMARY PATIENT: FERCHO PHAN UNIT: [id number] ADM DATE: 09/28/19 AGE: 54 : 67 SEX: M ROOM/BED: D.2231 AUTHOR: MILTON MONIQUE PHYSICIAN: REFERRING PHYSICIAN: KIRIT PLUMMER MD DATE OF SERVICE: 10/04/19 Discharge Plan Patient Name: FERCHO PHAN Facility: [facility]:[place] : 1965 Planned Disposition: Anticipated Discharge Date: Discharge Date: Expected LOS: Initial Reviewer: [email or web address] Initial Review Date: 09/28/2019 Generated: 10/04/19 12:33 pm Comments DCP- Discharge Planning Updated by [id number]: Kristie Galaviz on 10/04/19 10:[address] Amy from inpatient rehab states she has insurance auth for admission to inpatient rehab. I informed Shakira Gorman, she is writing discharge order. Family at bedside and patient and family agree with discharge plan. Discharging today to inpatient rehab at [facility]. DCP- Discharge Planning Updated by [id number]: Kristie Galaviz on 10/02/19 12:[address] Patient would like to go to inpatient rehab if his insurance will authorize this. He states he will just need to be discharged by the third to pay his rent. He states that he will need an electric wheelchair when discharged from inpatient rehab. He is unable to use a manual wheelchair because of disability with his hand. Order and clinical faxed to [facility] for electric wheelchair. CM will continue to follow and assist with discharge planning/needs. DCP- Discharge Planning Updated by [id number]: Tania Barrera on 09/30/19 4:[address] Patient Name: FERCHO PHAN Admission Status: ER Accout number: [id number] Admission Date: 09-28-2019 : 1965 Admission Diagnosis: Attending: KIRIT GARCIA Current LOS: 2 Anticipated DC Date: Planned Disposition: Primary Insurance: NOVASYS MANAGED MEDICAID Discharge Planning Comments: I SPOKE WITH PATIENT ABOUT EQIPMENT, STATES HE NEEDS A WHEEL CHAIR. DIANE SIGNED FOR [facility]. 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 I CONTACTED AND FAXED DOCUMENTS TO [facility]. Noodle Maker: Tania Barrera Appended by Tania Holly on 09/30/2019 17:24 BASKETBALL PLAYER: HE ALSO STATES THAT HE DID NOT ELECT NOT TO HAVE SURGERY. STATES HE WOULD LIKE TO HAVE THE SURGERY AND INSTRUCTED THE DOCTOR. CM TO FOLLOW AND ASSIST. DCP- Discharge Planning Updated by [id number]: Fabby Cotelroy on 09/28/19 10:[address] CM met with patient to discuss initial discharge planning. Patient is in agreement to proceed with assessment. Patient is alert/oriented. Stairs/steps: None. Patient lives in an apartment with an elevator. PCP: Belem Ji APRN, Dr. Bradley. Pharmacy: None. [facility]: [facility] in past, none current. DME: [facility]. Patient gives permission to speak with family members: Yes. Emergency contact: Trinh Marc (mother) [phone]. Independent w/ADL's: Yes. CM discussed the availability of HH, Rehab, DME services. Patient is in agreement to IN-patient REHAB if he qualifies. Patient denies being hospitalized within the past 30 days. 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 Transportation at time of discharge: Chrystal Marc (step-father) [phone]. CM will follow and assist with further DC planning PRN. Coverage Notice Reviewer: [id number] - Tania Barrera Notice Issued Date-Time: 09/30/2019 17:05 Notice Type: Patient Choice Letter Notice Delivered To: Patient Relationship to Patient: Mergers And Acquisitions Attorney Name: Delivery Method: HAND - Hand Delivered Bere Days: Prior Verbal Notification: Recipient Understood Notice: Yes Recipient Signature: Yes Med Rec Note Co-signed by Attending: Coverage Notice Comment: [facility] Last DP export: 10/02/19 12:12 Patient Name: FERCHO PHAN Page [phone] at 1134 All edits/amendments must be made on the electronic document DICTATION DATE: 10/04/19 113 CLINICAL REVIEW SPECIALIST: SHIRA 10/04/19 1133 RPT#: [id number] DC DATE: STATUS: ADM IN [facility] [address] [place] [address] END OF REPORT
[2019-10-04 12:45] VITALS: BP 146/83
--- NOTE | 2019-10-04 14:36 | NUR ---
REPORT CALLED TO SANDY HENRY RN ON REHAB. ALL QUESTIONS ANSWERED.
--- NOTE | 2019-10-04 14:56 | NUR ---
OT NOTE: DOS 10/03/19 PT COMPLETED TRANSFERS WITH MOD A USING RW AND ADHERING TO PRECAUTIONS. PT COMPLETED UB HYGIENE TASKS WITH SET UP. THANK YOU,NISHA TIMMONS
--- NOTE | 2019-10-04 15:07 | NUR ---
DISCHARGED TO REHAB VIA WC TO ROOM 1117 B. DISCHARGE INSTRUCTIONS GIVEN BOTH VERBALLY AND WRITTEN. ALL QUESTIONS ANSWERED. PATIENT VERBALIZED UNDERSTANDING OF SAME. ALL BELONGINGS WITH PATIENT. NO PRESCRIPTIONS NEEDED.
[2019-10-04] MEDS ORDERED: NICODERM C1 PATCH .2 TRANSDERM (15:19)
[2019-10-04] MEDS ORDERED: PROTONIX40 MG PO (15:20)
--- NOTE | 2019-10-04 15:20 | NUR ---
OT NOTE: MIN ASSIST WITH BED MOB; SET UP FOR DONNING GOWN; MOD ASSIST WITH SOCKS; SIT TO STAND WITH MIN/MOD ASSIST; TRANSFER WITH WALKER AND MIN ASSIST. POOR BALANCE IN STANDING DINESH ABDI OTR/L
--- NOTE | 2019-10-05 14:14 | MORECARE ---
CASE MANAGEMENT DISCHARGE SUMMARY PATIENT: FERCHO PHAN UNIT: [id number] ADM DATE: 09/28/19 AGE: 54 : 67 SEX: M ROOM/BED: D.2231 AUTHOR: MILTON MONIQUE PHYSICIAN: REFERRING PHYSICIAN: KIRIT PLUMMER MD DATE OF SERVICE: 10/05/19 Discharge Plan Patient Name: FERHCO PHAN Facility: [facility]:[place] : 1965 Planned Disposition: Inpatient Rehab Anticipated Discharge Date: Discharge Date: 10/04/2019 Expected LOS: 0 Initial Reviewer: [email or web address] Initial Review Date: 09/28/2019 Generated: 10/05/19 3:14 pm DCP- Discharge Planning Updated by [id number]: Kristie Zaragozaeunice on 10/04/19 10:[address] Amy from inpatient rehab states she has insurance auth for admission to inpatient rehab. I informed Lawandaarchie Gorman, she is writing discharge order. Family at bedside and patient and family agree with discharge plan. Discharging today to inpatient rehab at [facility]. DCP- Discharge Planning Updated by [id number]: Kristie Galaviz on 10/02/19 12:[address] Patient would like to go to inpatient rehab if his insurance will authorize this. He states he will just need to be discharged by the third to pay his rent. He states that he will need an electric wheelchair when discharged from inpatient rehab. He is unable to use a manual wheelchair because of disability with his hand. Order and clinical faxed to [facility] for electric wheelchair. CM will continue to follow and assist with discharge planning/needs. DCP- Discharge Planning Updated by [id number]: Tania Barrera on 09/30/19 4:[address] Patient Name: FERCHO PHAN Admission Status: ER Accout number: [id number] Admission Date: 09-28-2019 : 1965 Admission Diagnosis: Attending: KIRIT GARCIA Current LOS: 2 Anticipated DC Date: Planned Disposition: Primary Insurance: NOVASYS MANAGED MEDICAID Discharge Planning Comments: I SPOKE WITH PATIENT ABOUT EQIPMENT, STATES HE NEEDS A WHEEL CHAIR. DIANE SIGNED FOR [facility]. 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 I CONTACTED AND FAXED DOCUMENTS TO [facility]. Cbx Operator: Tania Barrera Appended by Tania Holly on 09/30/2019 17:24 ALARM MECHANISM ADJUSTER: HE ALSO STATES THAT HE DID NOT ELECT NOT TO HAVE SURGERY. STATES HE WOULD LIKE TO HAVE THE SURGERY AND INSTRUCTED THE DOCTOR. CM TO FOLLOW AND ASSIST. DCP- Discharge Planning Updated by [id number]: Fabby Ole on 09/28/19 10:[address] CM met with patient to discuss initial discharge planning. Patient is in agreement to proceed with assessment. Patient is alert/oriented. Stairs/steps: None. Patient lives in an apartment with an elevator. PCP: Dr. Mirna Lynn APRN. Pharmacy: None. [facility]: [facility] in past, none current. DME: [facility]. Patient gives permission to speak with family members: Yes. Emergency contact: Trinh aMrc (mother) [phone]. Independent w/ADL's: Yes. CM discussed the availability of HH, Rehab, DME services. Patient is in agreement to IN-patient REHAB if he qualifies. Patient denies being hospitalized within the past 30 days. Denies use of community resources WHEEL SETTER. Transportation at time of discharge: Chrystal Marc (step-father) [phone]. CM will follow and assist with further DC planning PRN. Coverage Notice Reviewer: [id number] - Tania Barrera Notice Issued Date-Time: 09/30/2019 17:05 Notice Type: Patient Choice Letter Notice Delivered To: Patient Relationship to Patient: Dry Cleaner Hand Name: Delivery Method: HAND - Hand Delivered Bere Days: Prior Verbal Notification: Recipient Understood Notice: Yes Recipient Signature: Yes Med Rec Note Co-signed by Attending: Coverage Notice Comment: [facility] Reviewer: [id number] Helena Galaviz Notice Issued Date-Time: 10/04/2019 11:35 Notice Type: IM Discharge Notice Notice Delivered To: Patient Relationship to Patient: Self Dry Cleaner Hand Name: Delivery Method: HAND - Hand Delivered Bere Days: Prior Verbal Notification: Recipient Understood Notice: Yes Recipient Signature: Yes Med Rec Note Co-signed by Attending: Coverage Notice Comment: IMM explained, signed, given, copy placed in MR Reviewer: [email or web address] Helena Galaviz Notice Issued Date-Time: 10/04/2019 11:35 Notice Type: Patient Choice Letter Notice Delivered To: Patient Relationship to Patient: Self Dry Cleaner Hand Name: Delivery Method: HAND - Hand Delivered Bere Days: Prior Verbal Notification: Recipient Understood Notice: Yes Recipient Signature: Yes Med Rec Note Co-signed by Attending: Coverage Notice Comment: DIANE for [facility] inpatient rehab Last DP export: 10/04/19 10:34 Patient Name: FERCHO PHAN Page [phone] at 1414 All edits/amendments must be made on the electronic document DICTATION DATE: 10/05/191413 JUNIOR SYSTEMS ANALYST: SHIRA 10/05/19 1414 RPT#: [id number] DC DATE:10/04/19 STATUS: DIS IN [facility] [address] [place] [address] END OF REPORT
== END 2019-10-04 15:08 | DRG 536 ==
LOC: D.ER 08:28 → D.MS 11:15
PROVIDERS: Emergency Medicine; Family Medicine; ADMIT Family Medicine; ATTEND Family Medicine
DX: S72.002A Fracture of unspecified part of neck of left femur, initial encounter for closed fracture (principal); F17.203 Nicotine dependence unspecified, with withdrawal; Z91.81 History of falling; W18.30XA Fall on same level, unspecified, initial encounter; Y92.009 Unspecified place in unspecified non-institutional (private) residence as the place of occurrence of the external cause; Z72.89 Other problems related to lifestyle; F12.90 Cannabis use, unspecified, uncomplicated; G80.8 Other cerebral palsy

== ENCOUNTER 2019-10-04 14:34 | Inpatient (IN) | payer MEDICARE, MEDICAID ==
[~2019-10-04] VITALS: Ht 180.3 cm; Wt 65.8 kg
--- NOTE | 2019-10-04 15:15 | NUR ---
RECIEVED PER WC TO RM 1117B.ORIENTED TO ROOM AND SURROUNDINGS,CL IN REACH.ASSISTED TO BED WITH ALARM IN PLACE.
[2019-10-04] MEDS ORDERED: NICODERM C1 PATCH .2 TRANSDERM (15:19)
[2019-10-04] MEDS ORDERED: PROTONIX40 MG PO (15:20)
[2019-10-04 15:42] VITALS: BP 139/63; BMI 20.2
--- NOTE | 2019-10-04 19:40 | NUR ---
PT SITTING UP IN BED. CL IN REACH. DENIES NEEDS AT THIS TIME. BED IN LOW SIDE RAILS X2. URINAL AT BEDSIDE. EMPTIED 200CC OUT OF IT.PT A/O X4. RESP EVEN AND UNLABORED. LUNGS CLEAR. BOWEL ACTIVE X4. WILL CONTINUE TO MONITOR.
[2019-10-04 20:00] VITALS: BP 140/78
--- NOTE | 2019-10-05 02:23 | NUR ---
I have reviewed this patient and I concur with the Shift Assessment completed by the Licensed Practical Nurse today this shift.
[2019-10-05 07:47] LABS: CALC OSMOLALITY 284 mosm/kg (275-300); CALCIUM 8.6 mg/dL (8.5-10.1); CARBON DIOXIDE 28.9 mmol/L (21.0-32.0); CHLORIDE - SERUM 108 mmol/L (98-107); CREATININE - SERUM 0.7 mg/dL (0.6-1.3); GLUCOSE 95 mg/dL (74-106); POTASSIUM - SERUM 3.8 mmol/L (3.5-5.1); SODIUM 142 mmol/L (136-145); UREA NITROGEN 17 mg/dL (7-18); eGFR NON AFRICAN AMERICAN > 90 mL/min (90-120)
[2019-10-05 07:52] LABS: BASOPHILS 0.2 % (0-2); EOSINOPHILS 5.8 % (0-7); HEMATOCRIT 37.4 % (42.0-54.0); HEMOGLOBIN 12.1 g/dL (13.5-17.5); IMMATURE GRANULOCYTES 0.2 % (0-5); LYMPHOCYTES 17.8 % (15-50); MCH 30.8 pg (26.0-34.0); MCHC 32.4 g/dL (31.0-37.0); MCV 95.2 fL (80.0-100.0); MEAN PLATELET VOLUME 9.8 fL (7.4-10.4); MONOCYTES 10.5 % (2-11); NEUTROPHILS 65.5 % (40-80); RBC 3.93 10x6/uL (4.20-6.10); RDW 13.2 % (11.5-14.5); WBC 9.1 10x3/uL (4.8-10.8)
[2019-10-05 08:00] VITALS: BP 138/73
[2019-10-05 08:05] LABS: PLATELET COUNT 260 10x3/uL (130-400)
[2019-10-05 09:57] VITALS: Ht 180.3 cm; Wt 65.8 kg
--- NOTE | 2019-10-05 14:42 | NUR ---
PATIENT ADMITTED TO REHAB FROM ACUTE FLOOR. HIS PCP IS AMAN WALLS APN AT DR. MCGARRY OFFICE. HE IS CLIENT OF [facility]. DISCHARGE PLANS ARE FOR PATIENT TO RETURN HOME . WILL CONTINUE TO FOLLOW WITH PATIENT.
[2019-10-05 19:30] VITALS: BP 112/53
--- NOTE | 2019-10-05 19:30 | NUR ---
PT IS RESTING IN BED WITH EYES OPEN. ALERT AND ORIENTED X 3. DENIES ACUTE PAIN OR DISCOMFORT AT THIS TIME. NO NEEDS VOICED. USING URINAL PRN. SR'S ARE UP X 2 IN BED. CALL LIGHT AND BEDSIDE TABLE ARE WITHIN EASY REACH.
--- NOTE | 2019-10-05 22:28 | NUR ---
PT IS RESTING IN BED WITH EYES OPEN. NO NEEDS VOICED.
--- NOTE | 2019-10-06 01:41 | NUR ---
I have reviewed this patient and I concur with the Shift Assessment completed by the Licensed Practical Nurse today this shift.
--- NOTE | 2019-10-06 04:23 | NUR ---
PT LYING IN BED EYES CLOSED RESTING QUIETLY. RR EVEN AND UNLABORED. CL IN REACH
[2019-10-06 08:00] VITALS: BP 135/70
--- NOTE | 2019-10-06 12:37 | NUR ---
SITTING UP EATING LUNCH. DENIES NEEDS OR C/O. CALL LIGHT IN REACH
--- NOTE | 2019-10-06 16:53 | NUR ---
RESTING QUIETLY IN BED. N S/S DISTRESS. CALL LIGHT IN REACH
--- NOTE | 2019-10-06 19:51 | NUR ---
PT IS RESTING IN BED WATCHING TV. ALERT AND ORIENTED X 3. DENIES ACUTE PAIN OR DISCOMFORT AT THIS TIME. PT FILLED OUT HIS MENU. LEFT SIDE WEAKNESS NOTED. SR'S ARE UP X 2 IN BED. CALL LIGHT AND BEDSIDE TABLE ARE WITHIN EASY REACH.
[2019-10-06 20:10] VITALS: BP 124/72
--- NOTE | 2019-10-06 21:34 | NUR ---
PT RESTING IN BED WATCHING TV. NO NEEDS VOICED.
--- NOTE | 2019-10-07 01:14 | NUR ---
I have reviewed this patient and I concur with the Shift Assessment completed by the Licensed Practical Nurse today this shift.
--- NOTE | 2019-10-07 04:30 | NUR ---
PT IS RESTING IN BED WITH EYES CLOSED. NO ACUTE DISTRESS NOTED.
[2019-10-07 08:00] VITALS: BP 113/54
--- NOTE | 2019-10-07 08:00 | NUR ---
PATIENT IS ALERT/ORIENT. CALL LIGHT WITHIN REACH. VOICES NO NEEDS AT THIS TIME. WILL CONTINUE WITH PLAN OF CARE
--- NOTE | 2019-10-07 10:24 | NUR ---
PATIENT HELPED WITH SHOWER BY OCCUPATIONAL THERAPIST
--- NOTE | 2019-10-07 18:09 | NUR ---
I have reviewed this patient and I concur with the Shift Assessment completed by the Licensed Practical Nurse today this shift.
--- NOTE | 2019-10-07 19:10 | NUR ---
PT IS RESTING IN BED WATCHING TV. ALERT AND ORIENTED X 3. DENIES ACUTE PAIN OR DISCOMFORT AT THIS TIME. NO NEEDS VOICED. VSS. SR'S ARE UP X 2 IN BED. CALL LIGHT AND BEDSIDE TABLE ARE WITHIN EASY REACH.
[2019-10-07 19:33] VITALS: BP 128/66
--- NOTE | 2019-10-07 21:14 | NUR ---
PT RESTING IN BED WATCHING TV. NO NEEDS VOICED.
--- NOTE | 2019-10-07 22:48 | NUR ---
I have reviewed this patient and I concur with the Shift Assessment completed by the Licensed Practical Nurse today this shift.
--- NOTE | 2019-10-08 01:55 | NUR ---
QUIET HOURS. PT LYIN BED EYES CLOSED RESTING QUIETLY. RR EVEN AND UNLABORED. CL IN REACH
[2019-10-08 06:46] LABS: BASOPHILS 0.2 % (0-2); EOSINOPHILS 6.5 % (0-7); HEMATOCRIT 39.4 % (42.0-54.0); IMMATURE GRANULOCYTES 0.5 % (0-5); LYMPHOCYTES 19.2 % (15-50); MCH 31.3 pg (26.0-34.0); MCV 94.7 fL (80.0-100.0); MEAN PLATELET VOLUME 9.6 fL (7.4-10.4); MONOCYTES 9.3 % (2-11); NEUTROPHILS 64.3 % (40-80); RBC 4.16 10x6/uL (4.20-6.10); RDW 13.3 % (11.5-14.5); WBC 9.7 10x3/uL (4.8-10.8)
[2019-10-08 06:47] LABS: CALC OSMOLALITY 284 mosm/kg (275-300); CALCIUM 8.8 mg/dL (8.5-10.1); CARBON DIOXIDE 30.3 mmol/L (21.0-32.0); CHLORIDE - SERUM 106 mmol/L (98-107); CREATININE - SERUM 0.7 mg/dL (0.6-1.3); GLUCOSE 93 mg/dL (74-106); SODIUM 142 mmol/L (136-145); UREA NITROGEN 19 mg/dL (7-18); eGFR NON AFRICAN AMERICAN > 90 mL/min (90-120)
[2019-10-08 06:51] LABS: PLATELET COUNT 324 10x3/uL (130-400)
--- NOTE | 2019-10-08 08:00 | NUR ---
PT RESTING IN BED WITH EYES OPEN CALL LIGHT IN REACH NO PROBLEMS WILL MONITER
[2019-10-08 13:13] VITALS: BP 120/72
--- NOTE | 2019-10-08 14:36 | NUR ---
Nutrition Follow-up: Diet: Regular PO intake: ~78% average x last 9 meals. Reports good appetite. Last BM: 10/07/19. WT: 145# (10/05/19). Meds and labs reviewed. Skin: reddened area to L buttocks (previous PU) Continue current nutrition regimen. RD following.
--- NOTE | 2019-10-08 15:19 | NUR ---
PT RESTING IN BED WITH EYES OPEN CALL LIGHT IN REACH NO PROBLEMS WILL MONITER
[2019-10-08 19:25] VITALS: BP 125/70
--- NOTE | 2019-10-08 19:36 | NUR ---
PT IS RESTING IN BED WATCHING TV. ALERT AND ORIENTED X 3. DENIES ANY PAIN OR DISCOMFORT. NO NEEDS VOICED. VSS. SR'S ARE UP X 2 IN BED. CALL LIGHT AND BEDSIDE TABLE ARE WITHIN EASY REACH.
--- NOTE | 2019-10-08 22:09 | NUR ---
RESTING IN BED WITH EYES CLOSED.
--- NOTE | 2019-10-09 01:38 | NUR ---
I have reviewed this patient and I concur with the Shift Assessment completed by the Licensed Practical Nurse today this shift.
--- NOTE | 2019-10-09 04:30 | NUR ---
RESTING IN BED WITH EYES CLOSED.
[2019-10-09 08:00] VITALS: BP 115/76
--- NOTE | 2019-10-09 08:00 | NUR ---
SHIFT ASSMT COMPLETED.UP AND HAS SHOWERED ALREADY.DENIES NEEDS.BREKFAST GIVEN.
--- NOTE | 2019-10-09 11:21 | NUR ---
CARE TEAM MEETING: PATIENT PROGRESSING WELL IN THEAPY. TENATIVE DSICHARGE HOME IS 10/16/19. WILL CONTINUE TO FOLLOW WITH PATIENT.
--- NOTE | 2019-10-09 12:00 | NUR ---
SITTING UP EATING LUNCH.
--- NOTE | 2019-10-09 16:00 | NUR ---
DENIES NEEDS.CONTINUE TO MONITOR.
[2019-10-09 19:45] VITALS: BP 115/68
--- NOTE | 2019-10-09 22:55 | NUR ---
PATIENT RECEIVED SITTING UP IN BED. VITAL SIGNS & ASSESSMENT DONE. NO C/O PAIN OR DISTRESS. BED LOW. CALL LIGHT WITHIN REACH. WILL CONTINUE TO MONITOR.
--- NOTE | 2019-10-10 02:28 | NUR ---
PATIENT EYES CLOSED. RESPIRATIONS 18 & EVEN. BED LOW. CALL LIGHT WITHIN REACH. ALARM ON. WILL CONTINUE TO MONITOR.
--- NOTE | 2019-10-10 03:58 | NUR ---
I have reviewed this patient and I concur with the Shift Assessment completed by the Licensed Practical Nurse today this shift.
[2019-10-10 06:58] LABS: CALC OSMOLALITY 286 mosm/kg (275-300); CARBON DIOXIDE 28.9 mmol/L (21.0-32.0); CHLORIDE - SERUM 106 mmol/L (98-107); CREATININE - SERUM 0.7 mg/dL (0.6-1.3); GLUCOSE 87 mg/dL (74-106); SODIUM 143 mmol/L (136-145); UREA NITROGEN 22 mg/dL (7-18); eGFR NON AFRICAN AMERICAN > 90 mL/min (90-120)
[2019-10-10 07:27] LABS: BASOPHILS 0.4 % (0-2); EOSINOPHILS 6.9 % (0-7); HEMOGLOBIN 13.7 g/dL (13.5-17.5); IMMATURE GRANULOCYTES 0.4 % (0-5); LYMPHOCYTES 15.8 % (15-50); MCH 31.1 pg (26.0-34.0); MCHC 32.6 g/dL (31.0-37.0); MCV 95.2 fL (80.0-100.0); MEAN PLATELET VOLUME 9.1 fL (7.4-10.4); MONOCYTES 9.2 % (2-11); NEUTROPHILS 67.3 % (40-80); PLATELET COUNT 312 10x3/uL (130-400); RBC 4.41 10x6/uL (4.20-6.10); RDW 13.2 % (11.5-14.5); WBC 9.8 10x3/uL (4.8-10.8)
[2019-10-10 08:00] VITALS: BP 100/63
--- NOTE | 2019-10-10 08:00 | NUR ---
SHIFT ASSMT COMPLETED.DENIES NEEDS.BREAKFAST TRAY GIVEN.
--- NOTE | 2019-10-10 20:16 | NUR ---
PATIENT RECEIVED SITTING UP IN BED WATCHING TV. ASSESSMENT & VITAL SIGNS DONE. NO C/O PAIN OR DISTRESS. BED LOW. ALARM ON. CALL LIGHT WITHIN REACH. WILL CONTINUE TO MONITOR.
[2019-10-10 20:25] VITALS: BP 121/78
--- NOTE | 2019-10-10 23:32 | NUR ---
I have reviewed this patient and I concur with the Shift Assessment completed by the Licensed Practical Nurse today this shift.
--- NOTE | 2019-10-11 02:30 | NUR ---
PATIENT EYES CLOSED. RESPIRATIONS 18 & EVEN. BED LOW. ALARM ON. CALL LIGHT WITHIN REACH. WILL CONTINUE TO MONITOR.
--- NOTE | 2019-10-11 07:57 | NUR ---
PT EATING BREAKFAST IN BED, DENIES NEEDS. WCTM.
[2019-10-11 08:00] VITALS: BP 135/72
--- NOTE | 2019-10-11 13:53 | NUR ---
CLINICAL UPDATE SFAXED TO MANUEL ZAAFR AT [facility] , AUTH. #[id number]. WITH CONFORMATION RECIEVED
--- NOTE | 2019-10-11 15:00 | NUR ---
Nutrition Follow-up: Diet: Regular PO intake: 100% x 9 meals Last BM: 10/10/19. WT: 145# (10/05/19) Meds, labs, and nursing skin assessment reviewed. Continue current nutrition regimen. RD following.
--- NOTE | 2019-10-11 16:50 | NUR ---
PT EATING DINNER, DENIES NEEDS. WCTM.
[2019-10-11 20:00] VITALS: BP 147/76
--- NOTE | 2019-10-11 20:00 | NUR ---
PATIENT RECEIVED SITTING UP IN BED WATCHING TV. ASSESSMENT & VITAL SIGNS DONE. NO C/O PAIN OR DISTRESS. MENU FILLED OUT. BED LOW. ALARM ON. CALL LIGHT WITHIN REACH. WILL CONTINUE TO MONITOR.
--- NOTE | 2019-10-12 02:17 | NUR ---
I have reviewed this patient and I concur with the Shift Assessment completed by the Licensed Practical Nurse today this shift.
--- NOTE | 2019-10-12 02:57 | NUR ---
PATIENT AWAKE WATCHING TV. BED LOW. CALL LIGHT WITHIN REACH. WILLCONTINUE TO MONITOR.
[2019-10-12 08:00] VITALS: BP 119/60
--- NOTE | 2019-10-12 09:51 | NUR ---
PT NICOTINE PATCH APPLIED. NO OTHER MEDS PRESCRIBED. PT DENIES NEEDS. WCTM.
[2019-10-12 19:20] VITALS: BP 134/74
--- NOTE | 2019-10-12 19:20 | NUR ---
BEDSIDE REPORT COMPLETE. PT LYING IN BED WATCHING TV. DENIES ANY NEEDS OR PAIN NO SIGNS OF ACUTE DISTRESS NOTED. VS STABLE. SHIFT ASSESSMENT COMPLETE. CL IN REACH. FALL PRECAUTIONS IN PLACE. WILL CONTINUE TO MONITOR
--- NOTE | 2019-10-12 23:32 | NUR ---
QUIET HOURS. PT LYING IN BED EYES CLOSED RESTING QUIETLY. RR EVEN AND UNLABORED. CL IN REACH
--- NOTE | 2019-10-13 03:36 | NUR ---
PT LYING IN BED EYES CLOSED RESTING. RR EVEN AND UNLABORED. CL IN REACH
--- NOTE | 2019-10-13 06:11 | NUR ---
PT SITTING UP IN BED WATCHING TV. DENIES ANY NEEDS OR PAIN. RR EVEN AND UNLABORED. CL IN REACH
[2019-10-13 08:00] VITALS: BP 131/83
--- NOTE | 2019-10-13 09:50 | NUR ---
HAS BEEN UP WORKING WITH THERAPY THIS MORNING.
--- NOTE | 2019-10-13 13:01 | NUR ---
WALKING JORDAN WITH WALKER AND P.T. HE DENIES PAIN OR NEEDS.
--- NOTE | 2019-10-13 15:32 | NUR ---
SITTING UP IN BED WATCHING TV. DENIES NEEDS OR C/O. CALL LIGHT IN REACH
--- NOTE | 2019-10-13 16:59 | NUR ---
RESTING QUIETLY IN BED. NO S/S DISTRESS. EYES CLOSED. TV ON. NO S/S DISTRESS. CALL LIGHT IN REACH
[2019-10-13 19:05] VITALS: BP 109/69
--- NOTE | 2019-10-13 19:05 | NUR ---
BEDSIDE REPORT COMPLETE. PT SITTING UP IN BED WATCHING TV. DENIES ANY NEEDS OR PAIN. NO SIGNS OF ACUTE DISTRESS NOTED. VS STABLE. SHIFT ASSESSSMENT COMPLETE. CL IN REACH. FALL PRECAUTIONS IN PLACE. WILL CONTINUE TO MONITOR
--- NOTE | 2019-10-13 23:48 | NUR ---
QUIET HOURS. PT LYING IN BED ON LEFT SIDE EYES CLOSED RESTING QUIETLY. RR EVEN AND UNLABORED. CL IN REACH
--- NOTE | 2019-10-14 01:57 | NUR ---
PT LYING IN BED ON RIGHT SIDE EYES CLOSED RESTING. RR EVEN AND UNLABORED. CL IN REACH
--- NOTE | 2019-10-14 05:03 | NUR ---
PT LYING IN BED EYES CLOSED RESTING COMFORTABLY. RR EVEN AND UNLABORED. CL IN REACH
[2019-10-14 08:00] VITALS: BP 113/68
[2019-10-14 19:20] VITALS: BP 138/80
--- NOTE | 2019-10-14 19:20 | NUR ---
BEDSIDE REPORT COMPLETE. PT SITTING UP IN BED WATCHING TV. DENIES ANY NEEDS OR PAIN. NO SIGNS OF ACUTE DISTRESS NOTED. VS STABLE. SHIFT ASSESSMENT COMPLETE. CL IN REACH. FALL PRECAUTIONS IN PLACE. WILL CONTINUE TO MONITOR
--- NOTE | 2019-10-15 00:06 | NUR ---
QUIET HOURS. PT LYING IN BED ON LEFT SIDE EYES CLOSED RESTING. RR EVEN AND UNLABORED. CL IN REACH
--- NOTE | 2019-10-15 03:55 | NUR ---
PT LYING IN BED ON LEFT SIDE EYES CLOSED RESTING. RR EVEN AND UNLABORED. CL IN REACH
[2019-10-15 06:16] LABS: BASOPHILS 0.4 % (0-2); EOSINOPHILS 6.2 % (0-7); HEMATOCRIT 43.1 % (42.0-54.0); IMMATURE GRANULOCYTES 0.3 % (0-5); LYMPHOCYTES 15.3 % (15-50); MCH 30.8 pg (26.0-34.0); MCHC 32.5 g/dL (31.0-37.0); MCV 94.9 fL (80.0-100.0); MEAN PLATELET VOLUME 9.8 fL (7.4-10.4); MONOCYTES 7.8 % (2-11); PLATELET COUNT 296 10x3/uL (130-400); RBC 4.54 10x6/uL (4.20-6.10); RDW 13.1 % (11.5-14.5); WBC 12.1 10x3/uL (4.8-10.8)
[2019-10-15 06:25] LABS: CALC OSMOLALITY 284 mosm/kg (275-300); CALCIUM 9.1 mg/dL (8.5-10.1); CARBON DIOXIDE 27.9 mmol/L (21.0-32.0); CHLORIDE - SERUM 105 mmol/L (98-107); CREATININE - SERUM 0.7 mg/dL (0.6-1.3); GLUCOSE 97 mg/dL (74-106); POTASSIUM - SERUM 4.1 mmol/L (3.5-5.1); SODIUM 142 mmol/L (136-145); UREA NITROGEN 18 mg/dL (7-18); eGFR NON AFRICAN AMERICAN > 90 mL/min (90-120)
--- NOTE | 2019-10-15 06:29 | NUR ---
PT LYING IN BED ON RIGHT SIDE AWAKE AND ALERT. DENIES ANY NEEDS OR PAIN. RR EVEN AND UNLABORED. CL IN REACH
--- NOTE | 2019-10-15 08:00 | NUR ---
PATIENT SITTING UP ON THE SIDE OF THE BED TO EAT BREAKFAST. ALERT/ORIENT. CALL LIGHT WITHIN REACH. VOICES NO NEEDS AT THIS TIME. WILL CONTINUE WITH PLAN OF CARE
--- NOTE | 2019-10-15 08:39 | RHP ---
PATIENT: FERCHO PHAN MEDICAL RECORD: [id number] ACCOUNT: [id number] [id number] : 67 ADMISSION DATE: 10/04/19 REHABILITATION HISTORY AND PHYSICAL EXAMINATION POST ADMISSION PHYSICIAN EXAMINATION ADMITTING DIAGNOSIS: Nondisplaced greater trochanteric fracture. HISTORY OF PRESENT ILLNESS: The patient is a 54-year-old gentleman who presented to the Emergency Room after falling. The patient apparently fell Tuesday, Tuesday and again on the morning of 09/27/2019 and reported pain in his left hip. Associated symptoms were including feeling off balance secondary to frequent falls. He denied any chest pain, palpitations, dizziness, shortness of breath, got a history of CP and the left upper and lower extremities are affected by it. He has got acute functional paraplegia, chronic partial left hemiparesis, chronic gait disturbance. He is an everyday smoker. He does drink 1-12 beers anywhere from 3-4 times per week. Denies any illicit drug use other than THC. Ortho was consulted, recommended no surgical intervention. Prior to this admission, the patient was living alone in his own apartment, was independent with ADLs, using a rolling walker for ambulation. Currently, he is toe-touch weightbearing on his left lower extremity with complaints of pain. He will require intensive therapy secondary to his cerebral palsy. He is mod-to-max assist with [id number] and [id number]. He has severe difficulty with ADLs and will try to maintain toe-touch weightbearing status and limited use of his upper extremities. These are all barriers to his discharge home. His goal is to return back to his apartment as close to his level of functioning as possible. COMORBIDITIES: Include fall, dyspnea, hypotension, fluid overload, electrolyte imbalance, fatigue, anemia, acute mental status changes, cognition problems, incontinence, anxiety, and depression. PAST MEDICAL HISTORY: Significant for weakness. He has got a history of CP. He has got a history of gastroesophageal reflux, history of defect affecting his left side. PAST SURGICAL HISTORY: None. ALLERGIES: No known drug allergies. CURRENT MEDICATIONS: Just include a Nicoderm patch and Protonix 40 mg daily. HABITS: Once again, he does like to smoke, drink and occasionally smoke pot. FAMILY HISTORY: Noncontributory. SOCIAL HISTORY: The patient hopes to return back home and get back to his prior level of functioning. REVIEW OF SYSTEMS: GENERAL: Does complain of some weakness and fatigue. HEENT: Denies cold, cough, or congestion. CARDIOVASCULAR: Denies chest pain. PHYSICAL EXAMINATION: HISTORY AND PHYSICAL [id number] FERCHO PHAN VITAL SIGNS: Stable, afebrile. GENERAL: A well-developed gentleman in no acute distress, alert upon exam. HEENT: Normocephalic and atraumatic. Mucosa moist. NECK: Supple. No lymphadenopathy. LUNGS: Clear in upper ornelas. No wheezing, rhonchi or rales. HEART: Regular rate and rhythm. No murmurs, rubs or gallops. ABDOMEN: Soft, benign and nondistended. Positive bowel sounds times 4. EXTREMITIES: No clubbing, cyanosis or edema. Does have pain to palpation around his pelvis. NEUROLOGIC: Consistent with CP with weakness. His left upper extremity is noted to be quite weak also. LABORATORY DATA: White count is 9.1, H&H of 12 and 37, and platelet count is noted to be 260. Sodium 142, potassium 3.8, BUN and creatinine of 17 and 0.7 and blood sugar is noted to be 95. ASSESSMENT: This is a 54-year-old gentleman admitted to the rehab with a working diagnosis of nondisplaced greater trochanteric fracture along with cerebral palsy. The patient has potential to make improvement. We instituted the following multidisciplinary therapies including, but not limited to physical, occupational, respiratory, speech, nutritional services, prosthetics and orthotics. Given his complex medical condition and risks for more complications, rehabilitation services cannot be provided at a low level of care such a skilled nurse facility. PLAN: 1. Admit to [facility] for intensive inpatient therapy to include the following disciplines; A. Physical therapy to improve gait, all transfer skills and bed mobility to a modified independent level. B. Occupational therapy to a modified independent level. C. Case management to assist with discharge planning and placement options. D. Nutrition to assist with nutritional needs. E. Rehabilitation nursing to assist in monitoring the patient's underlying medical condition and to assist with any type of bowel or bladder management. 2. The patient's current medications and medical care will be continued. 3. The patient will be placed on standard fall precautions. 4. The patient's estimated length of stay is approximately 7-10 days. 5. We will discuss this patient during care team staff meeting this week. TRANSINT:[id number] Voice Confirmation ID: [id number] DOCUMENT ID: [id number] LUIGI notes whether there has been none or any medical/functional change since admission: - No change since preadmission screen. LUIGI attests patient continues to be appropriate for IRF: - Continues to be appropriate. HISTORY AND PHYSICAL [id number] FERCHO PHAN,ISSA NAVA MD at 0839 CC: [id number] DICTATION DATE: 10/05/19830 B [employer] G[employer] WORKER: 10/05/19 0938 ADM IN [facility] [address] [id number]
[2019-10-15 10:21] VITALS: BP 117/72
--- NOTE | 2019-10-15 10:39 | NUR ---
PATIENT WORKING WITH PHYSICAL THERAPIST. WALKING UP AND DOWN HALLWAY WITH WHEELED WALKER. STAND BY ASST.
--- NOTE | 2019-10-15 19:02 | NUR ---
BEDSIDE REPORT COMPLETE. PT LYING IN BED WATCHING TV. DENIES ANY NEEDS OR PAIN. NO SIGNS OF ACUTE DISTRESS NOTED. CL IN REACH. FALL PRECAUTIONS IN PLACE. WILL CONTINUE TO MONITOR
[2019-10-15 21:14] VITALS: BP 116/62
--- NOTE | 2019-10-16 00:43 | NUR ---
QUIET HOURS. PT LYING IN BED EYES CLOSED RESTING. RR EVEN AND UNLABORED. CL IN REACH
--- NOTE | 2019-10-16 03:47 | NUR ---
PT LYING IN BED ON LEFT SIDE EYES CLOSED RESTING. RR EVEN AND UNLABORED. CL IN REACH
--- NOTE | 2019-10-16 05:48 | NUR ---
PT SITTING UP IN BED VISITING WITH ROOMMATE. DENIES ANY NEEDS OR PAIN. NO SIGNS OF ACUTE DISTRESS NOTED. CL IN REACH
--- NOTE | 2019-10-16 07:33 | NUR ---
PT RESTING IN BED WITH EYES OPEN CALL LIGHT IN REACH WILL MONITER
--- NOTE | 2019-10-16 09:52 | NUR ---
PATIENT DISCHARGING HOME TODAY. [facility] WILL PROVIDE THERAPY AT HOME. [facility] DELIVERED A WHEELCHAIR TO PATIENT. DR. YOUNG 10/25/19 @ 11:00, DR. SOTO 10/18/19 @ 2:45. PATIENT CHOICE FORM WITH COMPARE DATA REVIEWED WITH PATIENT COPY GIVEN TO PATIENT AND HE VOICED UNSDERSTANDING. [facility] FORM SIGNED, COPY GIVEN TO PATIENT AND FILED IN CHART. DISCHARGE INSTRUCTIONS FAXED TO PCP, HOME HEALTH AND REVIEWED WITH PATIENT
--- NOTE | 2019-10-16 12:45 | NUR ---
PT DISCHARGED TO HOME VIA WHEELCHAIR WITH FAMILY MEMBER. DISCHARGE MEDS AND SUMMARY REVIEWED WITH PT NO QUESTIONS OR CONCERNS. PT DENIED ME CALLING IN [employer] HE SAID HE WOULD NOT TAKE AND HE HAD TUMS AT HOME.
== END 2019-10-16 17:24 | disposition home health service (06) | DRG 559 ==
LOC: D.REHAB 14:34
PROVIDERS: ADMIT Emergency Medicine; ATTEND Emergency Medicine
DX: S72.112D Displaced fracture of greater trochanter of left femur, subsequent encounter for closed fracture with routine healing (principal); R53.2 Functional quadriplegia; G81.94 Hemiplegia, unspecified affecting left nondominant side; G80.9 Cerebral palsy, unspecified; D64.9 Anemia, unspecified; I95.9 Hypotension, unspecified; E87.70 Fluid overload, unspecified; K21.9 Gastro-esophageal reflux disease without esophagitis; R26.9 Unspecified abnormalities of gait and mobility; R53.1 Weakness; F17.200 Nicotine dependence, unspecified, uncomplicated; F12.90 Cannabis use, unspecified, uncomplicated; Z72.89 Other problems related to lifestyle